=== PATIENT | female | born 1955 | race African-American/Black ===

== ENCOUNTER 2022-08-26 05:58 | Inpatient (IN) | payer BC, MEDICAID ==
[2022-08-19 10:49] LABS: BASOPHILS # (AUTO) 0.1 X10'3 (0-0.2); BASOPHILS % (AUTO) 0.7 % (0-1); EOSINOPHILS # (AUTO) 0.2 X10'3 (0-0.9); EOSINOPHILS % (AUTO) 3.4 % (0-6); LYMPHOCYTES # (AUTO) 2.9 X10'3 (1.1-4.8); LYMPHOCYTES % (AUTO) 42.8 % (21-51); MEAN CORPUSCULAR HEMOGLOBIN 30.2 PG (27.0-31.0); MEAN CORPUSCULAR HGB CONC 33.2 g/dL (33.0-36.5); MEAN CORPUSCULAR VOLUME 91.1 FL (78-98); MEAN PLATELET VOLUME 8.1 FL (7.4-10.4); MONOCYTES # (AUTO) 0.3 X10'3 (0-0.9); MONOCYTES % (AUTO) 4.8 % (2-12); NEUTROPHILS # (AUTO) 3.3 X10'3 (1.8-7.7); NEUTROPHILS % (AUTO) 48.3 % (42-75); PRE OP HEMATOCRIT 41.3 % (35.0-45.0); PRE OP HEMOGLOBIN 13.7 g/dL (12.0-16.0); PRE OP PLATELET COUNT 315 X10'3 (140-440); RED BLOOD COUNT 4.53 X10'6 (4.20-5.60); RED CELL DISTRIBUTION WIDTH 16.8 % (11.5-14.5)
[2022-08-19 11:02] LABS: ALBUMIN 3.7 G/DL (3.4-5.0); ALBUMIN/GLOBULIN RATIO 0.9 (1.1-1.5); ALKALINE PHOSPHATASE 117 IU/L (46-116); BLOOD UREA NITROGEN 15 MG/DL (7-18); BUN/CREATININE RATIO 16.7 (10.0-20.0); CALCIUM 10.5 MG/DL (8.5-10.1); CHLORIDE 108 MMOL/L (99-107); PRE OP ALT 19 U/L (30-65); PRE OP ANION GAP 11 (8-16); PRE OP AST 7 U/L (10-37); PRE OP BILIRUB, TOTAL 0.3 MG/DL (0.0-1.0); PRE OP GLUCOSE 128 MG/DL (70-104); PRE OP SODIUM 145 MMOL/L (135-145); TOTAL CARBON DIOXIDE 25.9 MMOL/L (24-32); TOTAL PROTEIN 7.7 G/DL (6.4-8.2); eGFR 75 ML/MIN
[2022-08-19 11:16] LABS: HEMOGLOBIN A1C 7.1 % (4.5-6.2)
[~2022-08-26] VITALS: Ht 172.7 cm; Wt 100.5 kg
[2022-08-26] VITALS (19 sets, daily range): BP systolic 80–149; BP diastolic 53–94
[~2022-08-26 05:58] MED LIST: ATOR10TA70 PO; DUPI300S SQ; METF-438 PO; NOR5T PO; SEMA0.25 SQ; acetaminophen 325mg tablet PO ONE; cefazolin 2gm/D5W 100mL 100 ML IV ONE; celeCOXIB 100mg capsule PO ONE; famotidine 20mg tablet PO ONE; gabapentin 300mg capsule PO ONE; metoclopramide 5 mg/ml inj IV ONE; oxyCODONE SR 10mg (sust. release) tab -2 tabs (20mg) PO ONE; tranexamic acid inj. 1,000 MG in normal saline IV soln 100ML IV ONE; vancomycin 1,500 MG in NS 300ml IV soln IV ONE
--- NOTE | 2022-08-26 06:05 | NUR ---
PT ARRIVED TO [facility] FOR [facility]. PT COMPLETED 5 DAYS OF HIBICLENS SHOWERS. PEDAL PULSES W/N/L AND MARKED. CSM W/N/L. PT REVIEWED BOOKLET FOR EDUCATION. Addendum: 08/26/22 at 0813 by Marcella Esteban RN Amended: Links added.
[2022-08-26] MEDS ORDERED: ROPIVAcaine 0.5% (5mg/ml) 30ml vial ONE (06:38)
[2022-08-26] MEDS ORDERED: vancomycin 1,000mg inj ONE (06:38)
[2022-08-26] MEDS ORDERED: epiNEPHrine 1 mg/ml inj ONE (06:38)
[2022-08-26] MEDS ORDERED: cloNIDine hcl/PF 100mcg/ml inj ONE (06:39)
[2022-08-26] MEDS: ringers solution, lacted 1,000 ML IV SCH ×2 (06:48→11:59)
[2022-08-26] MEDS ORDERED: HYDROcodone/acetaminophen 10/325mg tab PO PRN (07:05)
[2022-08-26] MEDS ORDERED: bisacodyl 10mg suppository rectal RC PRN (07:05)
[2022-08-26] MEDS ORDERED: dextrose 50%-water 50ml dispensing syringe IV PRN ×2 (07:05)
[2022-08-26] MEDS ORDERED: magnesium hydroxide 30ml (MOM) UD suspension PO PRN (07:05)
[2022-08-26] MEDS ORDERED: diphenhydrAMINE 25mg capsule PO PRN (07:05)
[2022-08-26] MEDS ORDERED: DEXTROSE 15 GM of carb/4 tabs (each vial/BOTTLE has 4 tablets) PO PRN ×2 (07:05)
[2022-08-26] MEDS ORDERED: MESSAGE TO PHARMACY PO ONE (07:05)
[2022-08-26] MEDS ORDERED: HYDROmorphone inj. 0.5 MG/0.5 ML DISP.SYRIN IV PRN (07:05)
[2022-08-26] MEDS ORDERED: ondansetron/PF 4mg/2ml inj IV PRN ×2 (07:05→09:45)
[2022-08-26] MEDS ORDERED: HYDROmorphone 1 mg/ml syringe IV PRN (07:05)
[2022-08-26] MEDS ORDERED: acetaminophen 325mg tablet PO PRN (07:05)
[2022-08-26] MEDS ORDERED: naloxone 0.4 mg/ml inj IV PRN (07:05)
[2022-08-26] MEDS ORDERED: insulin Lispro (HumaLOG) vial - multi-dose SQ SCH (07:05)
[2022-08-26] MEDS ORDERED: glucagon, human recombinant 1mg kit SUBCUT PRN (07:05)
[2022-08-26] MEDS ORDERED: ascorbic acid 500mg tablet PO SCH (08:00)
[2022-08-26] MEDS ORDERED: gabapentin 300mg capsule PO SCH (08:00)
[2022-08-26] MEDS ORDERED: multivitamins, therapeutics tablet PO SCH (08:00)
[2022-08-26] MEDS ORDERED: aspirin 325mg tablet PO SCH (08:30)
[2022-08-26] MEDS ORDERED: MIDAZolam 1 MG/ML 5ML VIAL ONE (08:43)
[2022-08-26] MEDS ORDERED: fentaNYL/PF 50MCG/1 ML 2ML syringe ONE (08:43)
[2022-08-26] MEDS ORDERED: ePHEDrine 50MG/ML INJ. ONE (09:24)
[2022-08-26] MEDS ORDERED: proCHLORperazine 10 MG/2 ml inj IV PRN (09:45)
[2022-08-26] MEDS ORDERED: ringers solution, lacted 1,000 ML IV SCH (09:45)
[2022-08-26] MEDS ORDERED: morphine 4 MG/ML inj SYRINge IV PRN (09:45)
[2022-08-26] MEDS ORDERED: meperidine/PF 25mg/ml syringe IV PRN ×3 (09:45)
[2022-08-26] MEDS ORDERED: morphine 2 MG/ML inj. syringe IV PRN (09:45)
[2022-08-26] MEDS ORDERED: BUPIVAcaine/PF 7.5mg/ml (0.75%) 10ml vial ONE (10:07)
[2022-08-26] MEDS ORDERED: propofol inj 20 ML IV ONE (10:07)
[2022-08-26] MEDS ORDERED: meperidine/PF 25mg/ml syringe ONE (10:33)
[2022-08-26] MEDS ORDERED: acetaminophen 1,000mg/100ml IV 100 ML IV ONE (10:35)
--- NOTE | 2022-08-26 10:40 | NUR ---
Received from OR via , accompanied by Anesthesiologist TRIP AND OR NURSE and report given by Anesthesiolgist. PT IS DROWSY YET ABLE TO RESPOND TO VERBAL COMMANDS. PATIENT STATES PAIN AT A 9; NEW ORDER FOR .2 DILAUDID PLACED AND GIVEN. RT HIP WITH ALLY DRESSING AND CASETTE; WNL. 20G TO RT WRIST. VSS Addendum: 08/26/22 at 1119 by Daphnie Leigh RN Amended: Links added.
[2022-08-26] MEDS ORDERED: HYDROmorphone/PF 0.2 MG/ML SYRINGE IV PRN (10:45)
[2022-08-26] MEDS ORDERED: HYDROmorphone/PF 0.2 MG/ML SYRINGE ONE (10:53)
--- NOTE | 2022-08-26 11:40 | NUR ---
Patient in room . I have received report from fredrick ferraro and had the opportunity to ask questions and assume patient care.
--- NOTE | 2022-08-26 12:00 | NUR ---
PATIENT HAS MET ALL CRITERIA FOR TRANSFER TO THE ORTHO FLOOR. VSS. DRESSINGS INTACT. BED LOW, CALL LIGHT PRESENT AND 2 RAILS UP. RN PRESENT TO ACCEPT CARE OF PATIENT AND REPORT HAS BEEN CALLED. ALL QUESTIONS ANSWERED TO ACCEPTING RN. Addendum: 08/26/22 at 1214 by Daphnie Leigh RN Amended: Links added.
[2022-08-26] MEDS: potassium cl 20mEq in 1/2 NS 1,000 ML IV SCH ×2 (12:35→20:00)
[2022-08-26] MEDS ORDERED: tranexamic acid inj. 1,000 MG in normal saline 100ml IV soln 90 ML IV ONE (13:00)
[2022-08-26] MEDS: HYDROcodone/acetaminophen 10/325mg tab PO PRN ×2 (15:12→21:32)
--- NOTE | 2022-08-26 15:14 | NUR ---
PT DOES NOT WANT INSULIN CONTROLS BS ON THIER OWN WITH DIET AND ONE TIME A WEEK SHOT. SHE ALREADY TOOK THIS FOR THIS WEEK, WILL CALL DR STEWART AND LET HIM KNOW.
--- NOTE | 2022-08-26 15:18 | NUR ---
dr raza notified of pts refusal said she should be on the sliding scale and if refusing just document. will pass on to night nurse
--- NOTE | 2022-08-26 18:37 | NUR ---
Problems reprioritized. Patient report given, questions answered & plan of care reviewed with argenis ferraro.
[2022-08-26] MEDS: diphenhydrAMINE 25mg capsule PO PRN (19:55)
[2022-08-26] MEDS: ascorbic acid 500mg tablet PO SCH (19:56)
[2022-08-26] MEDS: gabapentin 300mg capsule PO SCH (19:56)
[2022-08-26] MEDS: sennosides 8.6mg tablet PO SCH (19:56)
[2022-08-26] MEDS: insulin glargine (Lantus) pen - multi-dose SQ SCH (19:57)
[2022-08-26] MEDS ORDERED: VANCOMYCIN 1,500MG inj. 1,500 MG in normal saline 500ml IV soln 300 ML IV ONE (20:00)
--- NOTE | 2022-08-26 22:45 | NUR ---
PT IS VERY INDEPENDENT. TRIES TO DO MORE THAN SHE IS ADVISED TO. PT WAS EDUCATED ON THE FACT THAT SHE NEEDS TO SEE PT BEFORE AMBULATING. PT STILL AMBULATED TO CHAIR AFTER BEING HELPED TO THE COMMODE. DID NOT WANT TO WAIT ON COMMODE WHILE BED WAS BEING MADE UP AND STARTED AMBULATING BY HERSELF TO THE CHAIR IN HER ROOM. PATIENT ALSO REFUSED HER DINNER TRAY AND ORDERED BURGER MANUELA AND DOES NOT WANT ANY INSULIN. PT SAYS SHE TAKES OZEMPIC AT HOME AND DID NOT WANT ANY INSULIN FOR HER BLOOD SUGAR OF 274. PT IS ALSO WANTING THE DR TO ORDER A WICK FOR HOME USE DUE TO IMMOBILIZATION.
[2022-08-27] MEDS: potassium cl 20mEq in 1/2 NS 1,000 ML IV SCH ×3 (00:58→12:00)
[2022-08-27 01:38] VITALS: BP 153/90
[2022-08-27] MEDS: HYDROcodone/acetaminophen 10/325mg tab PO PRN ×5 (02:19→23:09)
--- NOTE | 2022-08-27 06:57 | NUR ---
Problems reprioritized. Patient report given, questions answered & plan of care reviewed with LISA CORLEY.
[2022-08-27 07:00] VITALS: BP 158/87
[2022-08-27 07:11] LABS: BASOPHILS % (AUTO) 0.2 % (0-1); EOSINOPHILS % (AUTO) 0.1 % (0-6); HEMATOCRIT 37.5 % (35.0-45.0); HEMOGLOBIN 12.8 g/dl (12.0-16.0); LYMPHOCYTES # (AUTO) 2.1 X10'3 (1.1-4.8); LYMPHOCYTES % (AUTO) 18.4 % (21-51); MEAN CORPUSCULAR HEMOGLOBIN 30.7 PG (27.0-31.0); MEAN CORPUSCULAR VOLUME 90.2 FL (78-98); MEAN PLATELET VOLUME 8.5 FL (7.4-10.4); MONOCYTES % (AUTO) 8.6 % (2-12); NEUTROPHILS # (AUTO) 8.1 X10'3 (1.8-7.7); NEUTROPHILS % (AUTO) 72.7 % (42-75); PLATELET COUNT 274 X10'3 (140-440); RED BLOOD COUNT 4.16 X10'6 (4.20-5.60); RED CELL DISTRIBUTION WIDTH 16.2 % (11.5-14.5); WHITE BLOOD COUNT 11.1 X10'3 (4.5-11.0)
[2022-08-27 07:29] LABS: ANION GAP 9 (8-16); CHLORIDE 102 MMOL/L (99-107); POTASSIUM 3.4 MMOL/L (3.5-5.1); SODIUM 137 MMOL/L (135-145); TOTAL CARBON DIOXIDE 26.2 MMOL/L (24-32)
--- NOTE | 2022-08-27 07:53 | NUR ---
PAGER ID: [phone] MESSAGE: [id number] KELVIN MAGANA [employer]UE OF PLATELETS [id number] Addendum: 08/27/22 at 0755 by Aylaa Arevalo RN wrong patient, nursing error
[2022-08-27] MEDS: gabapentin 300mg capsule PO SCH ×3 (08:00→21:00)
[2022-08-27] MEDS: ascorbic acid 500mg tablet PO SCH ×2 (08:03→19:18)
[2022-08-27] MEDS: aspirin 325mg tablet PO SCH (08:03)
[2022-08-27] MEDS: multivitamins, therapeutics tablet PO SCH (08:03)
[2022-08-27] MEDS: atorvastatin 10mg tablet PO SCH (08:03)
[2022-08-27] MEDS: amLODIPine 5mg tablet PO SCH (08:04)
[2022-08-27 10:00] VITALS: BP 157/88
--- NOTE | 2022-08-27 10:51 | NUR ---
Joint surgery/DM consults: Pt s/p L hip surgery this admit hx DM A1C 7.1% per EMR. Pt seen by RD for written/verbal DM/high protein diet eds w/ RD contact information provided. SANGITA encouraged pt to contact dietitian's office if nutrition questions/concerns. Addendum: 08/27/22 at [address] Amended: Links added.
[2022-08-27 18:30] VITALS: BP 165/75
--- NOTE | 2022-08-27 18:30 | NUR ---
Assumed care Report received from Ayala GONZALEZ.
[2022-08-27] MEDS: celeCOXIB 100mg capsule PO SCH (19:17)
[2022-08-27] MEDS: diphenhydrAMINE 25mg capsule PO PRN (19:21)
--- NOTE | 2022-08-27 19:30 | NUR ---
Pt did not want to be bothered after night meds given no accu check done. Family is also bringing is outside food so blood sugar is high.
[2022-08-27] MEDS: sennosides 8.6mg tablet PO SCH (21:00)
[2022-08-27] MEDS: insulin glargine (Lantus) pen - multi-dose SQ SCH (21:00)
[2022-08-27 22:00] VITALS: BP 151/101
--- NOTE | 2022-08-28 01:06 | NUR ---
[place] call for help pt was in the bathroom door frame said she fell on her right knee doesnt complain of any pain.
[2022-08-28] MEDS: HYDROcodone/acetaminophen 10/325mg tab PO PRN ×2 (03:29→10:12)
[2022-08-28 06:00] VITALS: BP 171/98
--- NOTE | 2022-08-28 06:30 | NUR ---
Report to Nano Daniel.
--- NOTE | 2022-08-28 06:47 | NUR ---
Patient in room ORTHO 4008. I have received report from Toshia GONZALEZ and had the opportunity to ask questions and assume patient care.
[2022-08-28] MEDS: ascorbic acid 500mg tablet PO SCH (07:26)
[2022-08-28] MEDS: multivitamins, therapeutics tablet PO SCH (07:26)
[2022-08-28] MEDS: aspirin 325mg tablet PO SCH (07:26)
[2022-08-28] MEDS: atorvastatin 10mg tablet PO SCH (07:27)
[2022-08-28] MEDS: celeCOXIB 100mg capsule PO SCH (07:27)
[2022-08-28 07:29] LABS: BASOPHILS % (AUTO) 0.5 % (0-1); EOSINOPHILS # (AUTO) 0.3 X10'3 (0-0.9); EOSINOPHILS % (AUTO) 3.1 % (0-6); HEMATOCRIT 39.3 % (35.0-45.0); HEMOGLOBIN 13.1 g/dl (12.0-16.0); LYMPHOCYTES # (AUTO) 2.8 X10'3 (1.1-4.8); LYMPHOCYTES % (AUTO) 26.8 % (21-51); MEAN CORPUSCULAR HEMOGLOBIN 30.6 PG (27.0-31.0); MEAN CORPUSCULAR HGB CONC 33.3 g/dL (33.0-36.5); MEAN PLATELET VOLUME 8.8 FL (7.4-10.4); MONOCYTES # (AUTO) 0.9 X10'3 (0-0.9); MONOCYTES % (AUTO) 8.4 % (2-12); NEUTROPHILS # (AUTO) 6.5 X10'3 (1.8-7.7); NEUTROPHILS % (AUTO) 61.2 % (42-75); PLATELET COUNT 253 X10'3 (140-440); RED BLOOD COUNT 4.27 X10'6 (4.20-5.60); RED CELL DISTRIBUTION WIDTH 16.2 % (11.5-14.5); WHITE BLOOD COUNT 10.6 X10'3 (4.5-11.0)
[2022-08-28 07:30] VITALS: BP 134/87
[2022-08-28] MEDS: amLODIPine 5mg tablet PO SCH (07:36)
[2022-08-28] MEDS: gabapentin 300mg capsule PO SCH (08:00)
[2022-08-28 10:00] VITALS: BP 140/88
--- NOTE | 2022-08-28 10:19 | NUR ---
Patient refused scheduled gabapentin, reports that "I don't have any neuropathy." Education provided, patient states understanding
[2022-08-28] MEDS ORDERED: calcium carbonate 500mg chew tablet PO PRN (10:25)
--- NOTE | 2022-08-28 12:05 | NUR ---
Patient stable and appropriate for discharge. Patient AOx4 able to make needs known. Patient became agitated awaiting discharge, had to await clearance from physical therapy. Participated with PT but was not very pleasant. Discharge paperwork reviewed and signed by patient, education provided re restrictions, infection prevention, and care of hip. Patient stated understanding, did not have any questions. No PIV present to remove. Patient was encouraged to follow up as scheduled with Dr. Lopez. All belongings accounted for and sent home with patient. Assisted patient out of facility via w/c, patient independent into friends car.
--- NOTE | 2022-08-28 18:59 | NUR ---
Student documentation: I have reviewed and agree with all interventions, assessments performed and documented by Nano WALLS.
== END 2022-08-28 12:05 | disposition home or self-care (01) | DRG 470 ==
LOC: PAS 05:58 → ORTHO 4S 07:10
PROVIDERS: ADMIT Orthopaedic Surgery; ATTEND Orthopaedic Surgery
PROC: 3E0T3BZ Introduction of Anesthetic Agent into Peripheral Nerves and Plexi, Percutaneous Approach (ICD-10-PCS; 2022-08-26)
PROC: 3E0T33Z Introduction of Anti-inflammatory into Peripheral Nerves and Plexi, Percutaneous Approach (ICD-10-PCS; 2022-08-26)
PROC: 0SRB06Z Replacement of Left Hip Joint with Oxidized Zirconium on Polyethylene Synthetic Substitute, Open Approach (ICD-10-PCS; principal; 2022-08-26 08:38)
DX: M16.12 Unilateral primary osteoarthritis, left hip (principal); I10 Essential (primary) hypertension; E11.9 Type 2 diabetes mellitus without complications; Z79.82 Long term (current) use of aspirin; Z88.8 Allergy status to other drugs, medicaments and biological substances; Z87.891 Personal history of nicotine dependence
CPT/HCPCS: 36415; 72170; 80047; 80051; 80053; 82948; 83036; 85025; 87081; 93005; 97110; 97116; 97161; 97530; A6258; A7000; C1776; G0378; J0131; J0171; J0690; J0735; J1170; J1815; J2175; J2250; J2270; J2704; J2765; J2795; J3010; J3370; J3480; J3490; J7040; J7060; J7120; Q0163

== ENCOUNTER → 2022-09-17 12:55 | Outpatient (CLI) | payer BC, MEDICAID ==
[~2022-09-17] VITALS: Ht 172.7 cm; Wt 99.8 kg
[~2022-09-17 12:55] MED LIST changes: +IBUP-1984 PO; +POTA-197 PO; -acetaminophen 325mg tablet PO ONE; -cefazolin 2gm/D5W 100mL 100 ML IV ONE; -celeCOXIB 100mg capsule PO ONE; -gabapentin 300mg capsule PO ONE; -metoclopramide 5 mg/ml inj IV ONE; -oxyCODONE SR 10mg (sust. release) tab -2 tabs (20mg) PO ONE; +ringers solution, lacted 1,000 ML IV SCH; -tranexamic acid inj. 1,000 MG in normal saline IV soln 100ML IV ONE; -vancomycin 1,500 MG in NS 300ml IV soln IV ONE
== END | disposition home or self-care (01) ==
LOC: LAB 12:55 → EDSTATUS 16:30
PROVIDERS: ATTEND Orthopaedic Surgery
DX: S70.02XA Contusion of left hip, initial encounter (principal); Z96.642 Presence of left artificial hip joint; X58.XXXA Exposure to other specified factors, initial encounter; Y93.89 Activity, other specified; Y92.89 Other specified places as the place of occurrence of the external cause; Y99.8 Other external cause status
CPT/HCPCS: J7120 ×2